=== PATIENT | male | born 1950 | race Two or more races ===

== ENCOUNTER 2017-11-25 09:10 | Emergency (ER) | payer MEDICARE ==
[~2017-11-25] VITALS: Ht 167.6 cm; Wt 68.0 kg
--- NOTE | 2017-11-25 09:10 | NUR ---
BIBRA FROM HOME FOR ALTERED MENTAL STATUS, BS=LOW PRIOR TO [employer] DEVELOPER ARRIVAL, D50 X 2 GIVEN IN THE FIELD, NEW RQ=[id number]. PATIENT ALERT AT THIS TIME. NO SOB, NO DISTRESS NOTED. VSS. SAFETY AND COMFORT MEASURES IN PLACE. IV PRESENT CRIMINAL INTELLIGENCE SPECIALIST ON RIGHT AND LEFT AC, 20 G. AWAITING MD ORDERS.
[2017-11-25] MEDS ORDERED: IV NS 0.9% 1,000 ML BAG IV ONE (10:00)
--- NOTE | 2017-11-25 10:01 | NUR ---
IVF STARTED PER MD ORDERS.
--- NOTE | 2017-11-25 13:11 | NUR ---
REPEAT BS IS 73. MD INFORMED, STATED DO NOT DISCHARGE YET. ENCOURAGE PATIENT TO EAT AND RECHECK B.S. LATER.
--- NOTE | 2017-11-25 13:40 | NUR ---
REPEAT BLOOD SUGAR 82, PER DR. ASHLEY, CLEAR FOR DISCHARGE.
[2017-11-25 14:16] VITALS: BP 103/66
--- NOTE | 2017-11-25 14:17 | NUR ---
IV removed. Catheter intact and site benign. Pressure and 4x4 applied to site. No bleeding noted. Patient discharged to home in stable condition. Written and verbal after care instructions given. Patient verbalizes understanding of instruction.
== END 2017-11-25 14:15 | disposition home or self-care (01) ==
LOC: ER 09:14
DX: E11.649 Type 2 diabetes mellitus with hypoglycemia without coma (principal); C80.1 Malignant (primary) neoplasm, unspecified
CPT/HCPCS: 82962 ×5; 96360; 99284; A4606; J7030; Z7610